=== PATIENT | male | born 1950 | race Asian ===

== ENCOUNTER 2016-08-16 18:45 | Observation (INO) | payer OTHER ==
[2016-08-16 19:02] LABS: Hematocrit 38 % (42-52); Hemoglobin 12.6 g/dl (14.0-18.0); Mean Corpuscular HGB Conc 33 g/dl (31-36); Mean Corpuscular Hemoglobin 25 pg (27-31); Mean Corpuscular Volume 76 fL (80-94); Mean Platelet Volume 8 um3 (7.4-10.4); Red Blood Count 5.04 10^6/ul (4.0-5.4); Red Cell Distribution Width 15 % (10.5-15); White Blood Count 10.4 10^3/ul (3.5-10.8)
--- NOTE | 2016-08-16 19:12 | RAD ---
INDICATION: Difficulty walking and talking COMPARISON: None. TECHNIQUE: Contiguous axial sections of the brain were obtained from the skull base to the vertex without contrast. FINDINGS: The ventricles, cisterns and sulci are within normal limits. The talamantes-white matter differentiation is adequately maintained and there is no sulcal effacement. No significant focal abnormality or mass effect is present. There is no evidence for intracranial hemorrhage. No significant focal osseous abnormality is present. The visualized portion of the paranasal sinuses and mastoid air cells appear clear. IMPRESSION: Normal CT of the brain. Findings reported to Dr. Barrera over the telephone at 1908 hours on August 16, 2016.
[2016-08-16 19:17] LABS: Albumin 4.1 g/dL (3.2-5.2); BUN/Creatinine Ratio 14.4 (8-20); Calcium 8.8 mg/dL (8.6-10.3); EGFR African American 85.8 (>60); EGFR Non-African American 66.7 (>60); Globulin 3.1 g/dL (2-4); HDL Cholesterol 51.5 mg/dL; Total Bilirubin 0.4 mg/dL (0.2-1.0); Total Protein 7.2 g/dL (6.4-8.9)
--- NOTE | 2016-08-16 19:47 | RAD ---
INDICATION: Dizziness and altered mental status COMPARISON: Most recent comparison chest x-rays dated August 29, 2013 TECHNIQUE: Single AP portable view of the chest was obtained. FINDINGS: Image quality is compromised due to the relative inferiority of a portable chest x-ray. Stable postoperative findings include sternotomy wires and surgical clips overlying the left upper mediastinum. The heart and mediastinum exhibit normal size and contour. The lungs are grossly clear. There is no evidence of a large pleural effusion. Visualized bones are normal for the patient's age. IMPRESSION: No radiographic evidence for acute cardiopulmonary abnormality on this portable chest x-ray.
--- NOTE | 2016-08-16 20:37 | HP ---
H&P (Free Text) History and Physical: PCP: Anderson Ott Date/Time of Evaluation: 08/16/20162039 CC: acute memory loss HPI: Mr Hernandez is a 65YO male who speaks Luxembourger at a moderate level HX CAD/4vCABG who was at home with his this evening. He lay down around 1700 taking a nap until ~1800 when he awoke. His heard him in the restroom and called to see if he was OK. He came out and reported to her that he felt he was having trouble with his memory. She noted that he was repeating questions every few minutes and was unable to retain information. He also reports that he known what he wants to say, but has difficulty saying it. This difficulty is mainly in being slow to produce speech as well as being slow to recognize when someone is speaking. He denies focal W/N/T, change in vision/swallow, chest pain, SOB, F /C, cough, congestion, headache, or other issues. Dr Beatriz MD neurology was consulted via phone by Marium Barrera MD ED. Work up is essentially negative excepting a mild hypoKalemia and stable chronic microcytic anemia. CT brain WO, CXR, & ECG are benign. Vitals are stable. Primary differential diagnoses include TGA, TIA, & to a lesser degree arrhythmia or seizure. 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 Mother is alive & reasonably healthy in her 90s. ROS: as above, otherwise reviewed and all were negative Constitutional: NAD, normally developed, well-nourished male vitals: Vital Signs Temp 36.1 C 08/16/16 18:47 Pulse 82 08/16/16 18:47 Resp 16 08/16/16 18:47 BP 151/108 08/16/16 18:47 Pulse Ox 100 08/16/16 18:47 Intake & Output 08/15/16 08/16/16 08/16/16 23:59 11:59 23:59 Weight 74.843 kg HEENM: atraumatic; sclera/conjunctiva: non-icteric/clear; hearing: clinically intact; oropharynx: clear, mucosa moist Neck: soft tissue: non-tender; thyroid: normal Pulmonary: clear to auscultation bilaterally, good aeration, no accessory muscle use CV: RR/RR, normal S1S2, no carotid bruit, no jugular venous distention, 2+ B DP/ PT, no edema Abdominal: soft, non-distended, non-tender, no rebound/guarding/rigidity, normoactive bowel sounds, no hepatosplenomegaly or masses, no costovertebral angle tenderness Musculoskeletal: general: grossly intact; gait: stable Integumental: normal appearance and texture Neurological cranial nerves III/IV/: symmetric light reflex, EOMI/PERRLA V: intact facial sensation, normal mastication VII: intact facial symmetry, intact eye clench VIII: hearing clinically intact IX/X: symmetric palatal motion, no dysarthria XII: midline tongue protrusion, normal voice articulation motor: handed LUE: 4+/5 proximally, distally, & earth burner strength RUE: 3-/5 proximally 2nd pain, 4-/5 distally 2nd pain, & 4+/5 earth burner strength LLE: 4+/5 proximally & distally RLE: 4+/5 proximally & distally coordination finger/nose: unable to perform L 2nd pain sensory crude touch: intact globally pinprick: intact globally DTRs biceps: 2+ R, not tested L 2nd IV site w/ pain triceps: 2+ R, 1+ L suboptimal assessment 2nd pain brachioradialis: 1+ B patellar: 2+ B Achilles: 1+ B Babinski: downgoing B Psychiatric orientation: AA&O to PPS affect: calm mood: cooperative eye contact: good content: reliable memory: no repetition of questions during my exam responses: timely insight: fair to good Testing: Lab Results 08/16/16 08/16/16 08/16/16 Range/Units 18:51 18:53 18:53 WBC 10.4 (3.5-10.8) 10^3/ul RBC 5.04 (4.0-5.4) 10^6/ul Hgb 12.6 L (14.0-18.0) g/dl Hct 38 L (42-52) % MCV 76 L (80-94) fL MCH 25 L (27-31) pg MCHC 33 (31-36) g/dl RDW 15 (10.5-15) % Plt Count 185 (150-450) 10^3/ul MPV 8 (7.4-10.4) um3 Neut % (Auto) 53.6 (38-83) % Lymph % (Auto) 35.9 (25-47) % [place] % (Auto) 8.5 (1-9) % Eos % (Auto) 1.2 (0-6) % Baso % (Auto) 0.8 (0-2) % Absolute Neuts (auto) 5.6 (1.5-7.7) 10^3/ul Absolute Lymphs (auto) 3.7 (1.0-4.8) 10^3/ul Absolute Monos (auto) 0.9 H (0-0.8) 10^3/ul Absolute Eos (auto) 0.1 (0-0.6) 10^3/ul Absolute Basos (auto) 0.1 (0-0.2) 10^3/ul Absolute Nucleated RBC 0.01 10^3/ul Nucleated RBC % 0.1 INR (Anticoag Therapy) 0.88 L (0.89-1.11) APTT 29.7 (26.0-36.3) seconds Sodium (133-145) mmol/L Potassium (3.5-5.0) mmol/L Chloride (101-111) mmol/L Carbon Dioxide (22-32) mmol/L Anion Gap (2-11) mmol/L BUN (6-24) mg/dL Creatinine (0.67-1.17) mg/dL Est GFR ( Amer) (>60) Est GFR (Non-Af Amer) (>60) BUN/Creatinine Ratio (8-20) Glucose (70-100) mg/dL POC Glucose (mg/dL) 120 H (74-106) mg/dL Lactic Acid (0.5-2.0) mmol/L Calcium (8.6-10.3) mg/dL Total Bilirubin (0.2-1.0) mg/dL AST (13-39) U/L ALT (7-52) U/L Alkaline Phosphatase (34-104) U/L Troponin I (<0.04) ng/mL Total Protein (6.4-8.9) g/dL Albumin (3.2-5.2) g/dL Globulin (2-4) g/dL Albumin/Globulin Ratio (1-3) Triglycerides mg/dL Cholesterol mg/dL LDL Cholesterol mg/dL HDL Cholesterol mg/dL Blood Type Antibody Screen 08/16/16 08/16/16 08/16/16 Range/Units 18:53 18:53 18:53 WBC (3.5-10.8) 10^3/ul RBC (4.0-5.4) 10^6/ul Hgb (14.0-18.0) g/dl Hct (42-52) % MCV (80-94) fL MCH (27-31) pg MCHC (31-36) g/dl RDW (10.5-15) % Plt Count (150-450) 10^3/ul MPV (7.4-10.4) um3 Neut % (Auto) (38-83) % Lymph % (Auto) (25-47) % [place] % (Auto) (1-9) % Eos % (Auto) (0-6) % Baso % (Auto) (0-2) % Absolute Neuts (auto) (1.5-7.7) 10^3/ul Absolute Lymphs (auto) (1.0-4.8) 10^3/ul Absolute Monos (auto) (0-0.8) 10^3/ul Absolute Eos (auto) (0-0.6) 10^3/ul Absolute Basos (auto) (0-0.2) 10^3/ul Absolute Nucleated RBC 10^3/ul Nucleated RBC % INR (Anticoag Therapy) (0.89-1.11) APTT (26.0-36.3) seconds Sodium 136 (133-145) mmol/L Potassium 3.0 L (3.5-5.0) mmol/L Chloride 102 (101-111) mmol/L Carbon Dioxide 26 (22-32) mmol/L Anion Gap 8 (2-11) mmol/L BUN 16 (6-24) mg/dL Creatinine 1.11 (0.67-1.17) mg/dL Est GFR ( Amer) 85.8 (>60) Est GFR (Non-Af Amer) 66.7 (>60) BUN/Creatinine Ratio 14.4 (8-20) Glucose 119 H (70-100) mg/dL POC Glucose (mg/dL) (74-106) mg/dL Lactic Acid 2.3 H* (0.5-2.0) mmol/L Calcium 8.8 (8.6-10.3) mg/dL Total Bilirubin 0.40 (0.2-1.0) mg/dL AST 19 (13-39) U/L ALT 15 (7-52) U/L Alkaline Phosphatase 40 (34-104) U/L Troponin I 0.00 (<0.04) ng/mL Total Protein 7.2 (6.4-8.9) g/dL Albumin 4.1 (3.2-5.2) g/dL Globulin 3.1 (2-4) g/dL Albumin/Globulin Ratio 1.3 (1-3) Triglycerides 82 mg/dL Cholesterol 134 mg/dL LDL Cholesterol 66 mg/dL HDL Cholesterol 51.5 mg/dL Blood Type A Positive Antibody Screen Negative ECG, personally reviewed: NSR rate 85, no ischemia CXR, personally reviewed: IMPRESSION: No radiographic evidence for acute cardiopulmonary abnormality on this portable chest x-ray. CT brain WO, personally reviewed: IMPRESSION: Normal CT of the brain. Impression: 65M presenting with symptoms concerning primarily for TIA vs TGA, exam & HX somewhat limited 2nd language & cultural barriers DIAGNOSIS & PLAN Primary AMS, transient alteration of awareness : continue aspirin : check CTA head/neck : MRI [place] in AM : telemetry : recheck troponin in AM : no indication for PT/OT/ST : Ger Henderson MD neurology consulted via ED : supplemental oxygen : supportive care hypoKalemia : replace & recheck Secondary CAD/4vCABG : continue aspirin HTN : continue lisinopril HLD : continue atorvastatin chronic R shoulder pain : continue oxycodone PRN Admission Rational: CDU observation for TIA work up DVTp: heparin SQ Code Status: full HCP:
[2016-08-16] MEDS ORDERED: Iohexol 350* (CONTRAST) 500 ML MDV IV ONE (21:50)
[2016-08-16] MEDS ORDERED: Ondansetron INJ* 2 MG/ML VIAL IV PRN (22:34)
[2016-08-16] MEDS ORDERED: Melatonin (NF) 3 MG TAB PO PRN (22:34)
[2016-08-16] MEDS ORDERED: Acetaminophen TAB* 325 MG PO PRN (22:34)
[2016-08-16] MEDS ORDERED: oxyCODONE TAB* 5 MG TAB PO PRN (22:41)
--- NOTE | 2016-08-16 22:48 | RAD ---
CPT II: CPT II Codes: 3100F INDICATION: Altered mental status atlantoaxial COMPARISON: Same day CT of the brain without contrast TECHNIQUE: A CT angiogram of the head and neck was performed with 80 cc of Omnipaque 350. Contiguous axial sections were obtained from the thoracic inlet through the [place]. Images were reconstructed in the sagittal, coronal planes and in a 3-D volume rendered format. The distal cervical internal carotid artery diameter is used as the denominater for stenosis measurement. CTA NECK: The common and internal carotid arteries are patent without hemodynamically significant stenosis. Right: Coarse calcification causes narrowing at the right carotid bulb down to 5 mm in width. Just superiorly the right internal carotid artery measures 8 mm in width yielding approximately 63% degree stenosis. Left: There is eccentric calcified atherosclerosis at the left carotid bulb where the lumen measures 7 mm in diameter. Just superiorly the left internal carotid artery also measures 7 mm in diameter yielding no significant stenosis. The vertebral arteries are patent without gross abnormality. CTA of the brain: The internal carotid, anterior and middle cerebral arteries appear are patent without high grade stenosis or occlusion. The vertebral, basilar and posterior cerebral arteries appear patent without high grade stenosis or occlusion. The right communicating artery is diminutive relative to the left but the [place] is maintained. No focal luminal filling defect, aneurysm or vascular malformation is seen. IMPRESSION: There is coarse calcification at the bilateral carotid bulbs does not cause any significant stenosis on the left at approximately 63% degree stenosis on the right. This can BE further confirmed with carotid artery ultrasound if clinically warranted.
[2016-08-16] MEDS: Potassium Chlor TAB* 20 MEQ TAB.ER PO SCH (23:27)
[2016-08-16] MEDS: NS 0.9% 1000 ML* 1,000 ML IV SCH (23:32)
[2016-08-17] MEDS: Potassium Chlor TAB* 20 MEQ TAB.ER PO SCH (03:24)
[2016-08-17] MEDS: Heparin VIAL(*) 5000 UNITS/ML VIAL (FIVE THOUSAND) SUBCUT SCH ×3 (05:28→23:00)
[2016-08-17] MEDS: Omeprazole CAP* 20 MG PO SCH ×2 (05:28→05:31)
[2016-08-17 06:25] LABS: BUN/Creatinine Ratio 16.1 (8-20); Calcium 9.2 mg/dL (8.6-10.3); EGFR African American 105.2 (>60); EGFR Non-African American 81.8 (>60); Potassium 4.3 mmol/L (3.5-5.0); Troponin I 0.01 ng/mL (<0.04)
--- NOTE | 2016-08-17 09:14 | CONSULT ---
Consult Consult: 08/17/16 neurology consult 65 yo RHM w/ CAD/CABG, presenting last night with symptoms noted after waking up from a nap. He slept on the couch; his was in another room; there was no trauma or incontinence and they deny a history of seizures. When he awoke he felt dizzy and as if he (not the room) was spinning; he suggests 'his memory left' but it does not sound as if there was any clear amnesia, but rather some confusion. He stood and used the bathroom on his own, at which time he felt unsteady, but with no shorty fall or being pulled in any specific direction. he denies visual or bulbar issues, sensorimotor symptoms. His notes that he would take a few seconds to respond to her questions, and several times repeated himself (eg when she drove him to the hospital he said 'be careful driving' to her a few times), but that his speech was clear. 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 This am he had some nausea and emesis after using the restroom. He denies recent illness or sick contacts. He takes a baby ASA at baseline. Allergies/Meds - per jul PMH - as above, plus: HTN, HL, R rotator cuff surg FH - F of stroke; M alive in her 90s per chart SH - no etoh or tobacco, retired jeweler/aldo; accompanied by ; has been in [place] yrs; originally from [facility] ROS 10 point review as per hpi, otherwise negative general Examination: no apparent distress when lying flat; after standing and briefly ambulating became nauseated and had modest amount of non bloody emesis; no edema, male of stated age; redundant eyelid folds without clear ptosis; vs per emr Neurologic Examination Mental Status: alert and oriented; affect reactive, no clear neglect, fluent speech, hebrew as second language but speaks reasonably well Cranial Nerves: Funduscopy deferred, otherwise II-XII intact; pruitt full to confrontation; no nystagmus Motor: normal bulk, tone and power; no drift or tremor Sensory: vibration and touch are intact Reflexes: 2 throughout symmetrically. Plantar responses are flexor Coordination: finger to nose is accurate; no overt truncal ataxia seated Gait: normal casual gait; cautious but narrow base; Romberg had mild sway but did not break (afterwards became sick as above) Serologies: - Cbc, coags, chem, lft ,trop, lipids are all normal or negative; K 3 then normalized - Priors: crp, psa, tsh were all ok; cpk 400s in 2013, then resolved follow up; bnp 280 Imaging: - Head CT reviewed and negative - CTA head and neck (done at [facility] ED) reviewed and without high grade stenosis to my review (rads report suggests 60% R carotid narrowing at bifurcation due to calcification) - Cxr neg; stress test 08/05 neg Impression: 65 yo RHM, CAD/CABG, several vascular risk factors, p/w imbalance/possible vertigo, ? confusion, some GI symptoms. His exam is not clearly localizing; CT and CTA negative save some sub surgical stenosis R ICA (clinically incidental; CTA can over state degree of stenosis in context of calcification). Having heard the story first hand, it does not sound typical of transient global amnesia (TGA). The differential includes a post fossa (cerebellar, thalamic or less likely brainstem) stroke, and he has an MRI scheduled; but also a primary non neuro illness. I will follow up on his imaging; if there is evidence of acute infarct he will need tele, TTE.
[2016-08-17] MEDS: Lisinopril TAB* 5 MG PO SCH (10:07)
[2016-08-17] MEDS: Docusate CAP* 100 MG PO SCH ×2 (10:08→20:25)
[2016-08-17] MEDS: Aspirin EC Low Dose* 81 MG TAB.EC PO SCH (10:08)
--- NOTE | 2016-08-17 11:41 | RAD ---
HISTORY: Vertigo COMPARISONS: CT of the brain August 16, 2016 TECHNIQUE: The following sequences were obtained of the head: Sagittal T1-weighted images, axial T2-weighted images, axial FLAIR images, axial susceptibility weighted images, axial T1-weighted images. Additionally, axial diffusion-weighted images were obtained with calculated apparent diffusion coefficients.. FINDINGS: HEMORRHAGE/INFARCT: There is no hemorrhage or acute infarct. MASSES/SHIFT: There is no mass or shift. EXTRA-AXIAL SPACES/MENINGES: There are no extra-axial fluid collections. SULCI AND VENTRICLES: The sulci and ventricles are normal in size and position for the patient's stated age. CEREBRUM: There are no focal parenchymal abnormalities. BRAINSTEM: There are no focal parenchymal abnormalities. CEREBELLUM: There are no focal parenchymal abnormalities. The cerebellar tonsils are normal in size and position. SELLA: The sella is normal. PINEAL: The pineal region is clear. CP ANGLE/TEMPORAL BONES: The labyrinthine structures are grossly normal. VESSELS: Normal flow-voids are noted within the visualized vertebral vasculature. DIFFUSION ABNORMALITIES: There are no diffusion abnormalities. PARANASAL SINUSES/MASTOIDS: There is mild mucosal thickening of the bilateral maxillary sinuses. ORBITS: The orbits are unremarkable. BONES AND SOFT TISSUE: No bone or soft tissue abnormalities are noted. IMPRESSION: NO ACUTE INTRACRANIAL ABNORMALITY INCLUDING NO EVIDENCE OF ACUTE FOCAL OR TERRITORIAL INFARCTION.
[2016-08-17 12:41] LABS: Urine Bilirubin Negative (Negative); Urine Glucose Negative (Negative); Urine Nitrite Negative (Negative)
[2016-08-17] MEDS ORDERED: Atorvastatin* 20 MG TAB PO SCH (18:00)
--- NOTE | 2016-08-17 19:13 | PN ---
Subjective Date of Service: 08/17/16 Interval History: Pt has limited ability to speak Kyrgyz, but not interested in asking a manager life to come in . Family in room. Pt feels better, but still c/o " heavy head". Vomited once today. Feels unsteady on feet, but ambulated to bathroom with no problems Objective Active Medications: Acetaminophen (Tylenol Tab*) 650 mg PO Q6H PRN PRN Reason: FEVER/PAIN Aspirin (Aspirin Ec Low Dose*) 81 mg PO DAILY [facility] Last Admin: 08/17/16 10:08 Dose: 81 mg Atorvastatin Calcium (Lipitor*) 20 mg PO QPM [facility] Last Admin: 08/17/16 18:10 Dose: 20 mg Docusate Sodium (Colace Cap*) 200 mg PO BID [facility] Last Admin: 08/17/16 10:08 Dose: 200 mg Heparin Sodium (Porcine) (Heparin Vial(*)) 5,000 units SUBCUT Q8HR [facility] Last Admin: 08/17/16 13:43 Dose: 5,000 units Sodium Chloride (Ns 0.9% 1000 Ml*) 1,000 mls @ 50 mls/hr IV PER RATE [facility] Last Admin: 08/16/16 23:32 Dose: 50 mls/hr Lisinopril (Prinivil Tab*) 5 mg PO DAILY [facility] Last Admin: 08/17/16 10:07 Dose: 5 mg Melatonin (Melatonin (Nf)) 3 mg PO BEDTIME PRN; Protocol PRN Reason: Sleep Omeprazole (Prilosec Cap*) 20 mg PO DAILY@0600 [facility] Last Admin: 08/17/16 05:31 Dose: Not Given Ondansetron HCl (Zofran Inj*) 4 mg IV Q6H PRN PRN Reason: NAUSEA Oxycodone HCl (Roxycodone Tab*) 5 mg PO Q4HR PRN PRN Reason: PAIN Vital Signs 08/16/16 08/16/16 08/16/16 20:45 21:00 21:15 Temperature Pulse Rate 82 77 79 Respiratory 15 19 20 Rate Blood Pressure 128/86 (mmHg) O2 Sat by Pulse 98 97 97 Oximetry 08/16/16 08/16/16 08/16/16 21:30 21:45 22:00 Temperature Pulse Rate 76 73 75 Respiratory 17 17 21 Rate Blood Pressure 135/82 (mmHg) O2 Sat by Pulse 96 96 96 Oximetry 08/16/16 08/17/16 08/17/16 22:30 00:00 03:42 Temperature 98.1 F 98.3 F Pulse Rate 71 73 Respiratory 16 20 Rate Blood Pressure 148/85 114/80 (mmHg) O2 Sat by Pulse 100 96 100 Oximetry 08/17/16 08/17/16 08/17/16 09:47 12:09 12:24 Temperature 98.0 F Pulse Rate 72 Respiratory 14 Rate Blood Pressure 106/73 (mmHg) O2 Sat by Pulse 95 97 97 Oximetry 08/17/16 08/17/16 08/17/16 15:07 15:23 16:07 Temperature 98.3 F Pulse Rate 64 Respiratory Rate Blood Pressure 110/78 (mmHg) O2 Sat by Pulse 96 97 96 Oximetry Oxygen Devices in Use Now: None Appearance: 65 yo M in NAD, AAOx3, poor historian Eyes: No Scleral Icterus, PERRLA Ears/Nose/Mouth/Throat: NL Teeth, Lips, Gums, Mucous Membranes Moist Neck: NL Appearance and Movements; NL JVP, Trachea Midline Respiratory: Symmetrical Chest Expansion and Respiratory Effort, Clear to Auscultation Cardiovascular: NL Sounds; No Murmurs; No JVD, RRR Abdominal: NL Sounds; No Tenderness; No Distention Lymphatic: No Cervical Adenopathy Extremities: No Edema, No Clubbing, Cyanosis Skin: No Rash or Ulcers, No Nodules or Sclerosis Neurological: Alert and Oriented x 3, NL Muscle Strength and Tone Result Diagrams: 08/16/16 18:53 08/17/16 05:35 Assess/Plan/Problems-Billing Assessment: 65 yo M with h/o HTN, dyslipidemia, CABG presents c/o dizziness and confusion (repeating the same questions prior to admission) - Patient Problems (1) Confusion Comment: appreciate neurology consult. MRI negative. Pt is a very poor historian. Suspect toxic metabolic encephalopathy due to a viral infection(vomited-? GI virus) cont obv, gentle IVF (2) HTN (hypertension) Comment: cotn lisinopril, controled (3) Dyslipidemia Comment: LDL 66. cont lipitor (4) DVT prophylaxis Comment: heparin sc Status and Disposition: cont OBV, likely d/c home tomorrow
[2016-08-17] MEDS ORDERED: NS 0.9% 500 ML BAG* 500 ML IV ONE (21:00)
[2016-08-18] MEDS ORDERED: NS 0.9% 1000 ML* 1,000 ML IV ONE (00:30)
[2016-08-18] MEDS: NS 0.9% 1000 ML* 1,000 ML IV SCH (02:57)
[2016-08-18] MEDS: Omeprazole CAP* 20 MG PO SCH (05:22)
[2016-08-18] MEDS: Heparin VIAL(*) 5000 UNITS/ML VIAL (FIVE THOUSAND) SUBCUT SCH (05:23)
[2016-08-18 06:00] LABS: Hematocrit 35 % (42-52); Hemoglobin 11.4 g/dl (14.0-18.0); Mean Corpuscular HGB Conc 32 g/dl (31-36); Mean Corpuscular Hemoglobin 25 pg (27-31); Mean Corpuscular Volume 77 fL (80-94); Mean Platelet Volume 8 um3 (7.4-10.4); Red Cell Distribution Width 15 % (10.5-15); White Blood Count 5.6 10^3/ul (3.5-10.8)
[2016-08-18 06:15] LABS: BUN/Creatinine Ratio 15.8 (8-20); Calcium 8.5 mg/dL (8.6-10.3); EGFR African American 95.6 (>60); EGFR Non-African American 74.4 (>60); Potassium 4.2 mmol/L (3.5-5.0)
[2016-08-18 07:57] VITALS: BP 116/70
--- NOTE | 2016-08-18 08:03 | ED ---
Tyrell Wright Erika, scribed for Kosta Barrera MD on 08/16/16 at 1909 . Altered Mental Status - HPI Summary HPI Summary: Patient is a 65-year-old male presenting to the ED with a CC of AMS. Per , patient was last known well at 17:00 today. She reports that they ate dinner this afternoon, and then patient became fatigued at 17:00 and took a nap. He got up around 17:45. Patient was then confused and forgetful, per - she reports that he was unable to speak because he would forget what he was trying to say. She also reports that patient would repeat the same questions, and could not remember that his had already answered him. Patient was also dizzy. Patient denies pain or focal weakness. - History Of Current Complaint Chief Complaint: EDAltMentalStatus Stated Complaint: DIZZINESS/AMS Time Seen by Provider: 08/16/16 18:45 Hx Obtained From: Patient, Family/Azure Developer - Onset/Duration: Still Present Timing: Constant Severity Currently: Moderate Character: Confusion Aggravating Factor(s): Unknown Alleviating Factor(s): Nothing Associated Signs And Symptoms: Positive: Dizziness - Allergies/Home Medications Allergies/Adverse Reactions: Allergies Allergy/AdvReac Type Severity Reaction Status Date / Time Ibuprofen Allergy Intermediate Unknown Verified 07/27/13 21:44 Reaction Details Home Medications: Home Medications Lisinopril 5 mg PO DAILY 08/16/16 [History Confirmed 08/16/16] PMH/Surg Hx/FS Hx/Imm Hx Endocrine/Hematology History: Denies: Hx Diabetes Cardiovascular History: Reports: Hx Angina, Hx Coronary Artery Disease, Hx Hypercholesterolemia, Hx Myocardial Infarction - with stents Denies: Hx Hypertension Respiratory History: Denies: Hx Asthma, Hx Chronic Obstructive Pulmonary Disease (COPD) Infectious Disease History: Unable to Obtain/Confirm Infectious Disease History: Denies: Traveled Outside the [place] in Last 30 Days - Family History Known Family History: Positive: Other - stroke in father at young age - Social History Lives: With Family Alcohol Use: Rare Hx Substance Use: No Substance Use Type: Reports: None Hx Tobacco Use: No Smoking Status (MU): Never Smoked Tobacco Review of Systems Positive: Fatigue Negative: Arthralgia, Myalgia Neurological: Other - confusion, difficulty saying what he wants to, dizziness, memory loss Negative: Weakness All Other Systems Reviewed And Are Negative: Yes Physical Exam Triage Information Reviewed: Yes Vital Signs On Initial Exam: Initial Vitals Temp Pulse Resp BP Pulse Ox 97 F 82 16 151/108 100 08/16/16 18:47 08/16/16 18:47 08/16/16 18:47 08/16/16 18:47 08/16/16 18:47 Vital Signs Reviewed: Yes Appearance: Positive: Well-Appearing, No Pain Distress Skin: Positive: Warm, Skin Color Reflects Adequate Perfusion, Dry Head/Face: Positive: Normal Head/Face Inspection Eyes: Positive: Other: - transient fatiguing nystagmus with the fast component to the right ENT: Positive: Normal ENT inspection Neck: Positive: Supple, Nontender Respiratory/Lung Sounds: Positive: Clear to Auscultation, Breath Sounds Present Cardiovascular: Positive: RRR Abdomen Description: Positive: Nontender, Soft Bowel Sounds: Positive: Present Musculoskeletal: Positive: Normal Neurological: Positive: Other - see NIH stroke scale Psychiatric: Positive: Affect/Mood Appropriate Diagnostics - Vital Signs Vital Signs Temp Pulse Resp BP Pulse Ox 08/16/16 18:47 97 F 82 16 151/108 100 - Laboratory Lab Results: Lab Results 08/16/16 08/16/16 08/16/16 Range/Units 18:51 18:53 18:53 WBC 10.4 (3.5-10.8) 10^3/ul RBC 5.04 (4.0-5.4) 10^6/ul Hgb 12.6 L (14.0-18.0) g/dl Hct 38 L (42-52) % MCV 76 L (80-94) fL MCH 25 L (27-31) pg MCHC 33 (31-36) g/dl RDW 15 (10.5-15) % Plt Count 185 (150-450) 10^3/ul MPV 8 (7.4-10.4) um3 Neut % (Auto) 53.6 (38-83) % Lymph % (Auto) 35.9 (25-47) % Butler % (Auto) 8.5 (1-9) % Eos % (Auto) 1.2 (0-6) % Baso % (Auto) 0.8 (0-2) % Absolute Neuts (auto) 5.6 (1.5-7.7) 10^3/ul Absolute Lymphs (auto) 3.7 (1.0-4.8) 10^3/ul Absolute Monos (auto) 0.9 H (0-0.8) 10^3/ul Absolute Eos (auto) 0.1 (0-0.6) 10^3/ul Absolute Basos (auto) 0.1 (0-0.2) 10^3/ul Absolute Nucleated RBC 0.01 10^3/ul Nucleated RBC % 0.1 INR (Anticoag Therapy) 0.88 L (0.89-1.11) APTT 29.7 (26.0-36.3) seconds Sodium (133-145) mmol/L Potassium (3.5-5.0) mmol/L Chloride (101-111) mmol/L Carbon Dioxide (22-32) mmol/L Anion Gap (2-11) mmol/L BUN (6-24) mg/dL Creatinine (0.67-1.17) mg/dL Est GFR ( Amer) (>60) Est GFR (Non-Af Amer) (>60) BUN/Creatinine Ratio (8-20) Glucose (70-100) mg/dL POC Glucose (mg/dL) 120 H (74-106) mg/dL Lactic Acid (0.5-2.0) mmol/L Calcium (8.6-10.3) mg/dL Total Bilirubin (0.2-1.0) mg/dL AST (13-39) U/L ALT (7-52) U/L Alkaline Phosphatase (34-104) U/L Troponin I (<0.04) ng/mL Total Protein (6.4-8.9) g/dL Albumin (3.2-5.2) g/dL Globulin (2-4) g/dL Albumin/Globulin Ratio (1-3) Triglycerides mg/dL Cholesterol mg/dL LDL Cholesterol mg/dL HDL Cholesterol mg/dL Blood Type Antibody Screen 08/16/16 08/16/16 08/16/16 Range/Units 18:53 18:53 18:53 WBC (3.5-10.8) 10^3/ul RBC (4.0-5.4) 10^6/ul Hgb (14.0-18.0) g/dl Hct (42-52) % MCV (80-94) fL MCH (27-31) pg MCHC (31-36) g/dl RDW (10.5-15) % Plt Count (150-450) 10^3/ul MPV (7.4-10.4) um3 Neut % (Auto) (38-83) % Lymph % (Auto) (25-47) % Butler % (Auto) (1-9) % Eos % (Auto) (0-6) % Baso % (Auto) (0-2) % Absolute Neuts (auto) (1.5-7.7) 10^3/ul Absolute Lymphs (auto) (1.0-4.8) 10^3/ul Absolute Monos (auto) (0-0.8) 10^3/ul Absolute Eos (auto) (0-0.6) 10^3/ul Absolute Basos (auto) (0-0.2) 10^3/ul Absolute Nucleated RBC 10^3/ul Nucleated RBC % INR (Anticoag Therapy) (0.89-1.11) APTT (26.0-36.3) seconds Sodium 136 (133-145) mmol/L Potassium 3.0 L (3.5-5.0) mmol/L Chloride 102 (101-111) mmol/L Carbon Dioxide 26 (22-32) mmol/L Anion Gap 8 (2-11) mmol/L BUN 16 (6-24) mg/dL Creatinine 1.11 (0.67-1.17) mg/dL Est GFR ( Amer) 85.8 (>60) Est GFR (Non-Af Amer) 66.7 (>60) BUN/Creatinine Ratio 14.4 (8-20) Glucose 119 H (70-100) mg/dL POC Glucose (mg/dL) (74-106) mg/dL Lactic Acid 2.3 H* (0.5-2.0) mmol/L Calcium 8.8 (8.6-10.3) mg/dL Total Bilirubin 0.40 (0.2-1.0) mg/dL AST 19 (13-39) U/L ALT 15 (7-52) U/L Alkaline Phosphatase 40 (34-104) U/L Troponin I 0.00 (<0.04) ng/mL Total Protein 7.2 (6.4-8.9) g/dL Albumin 4.1 (3.2-5.2) g/dL Globulin 3.1 (2-4) g/dL Albumin/Globulin Ratio 1.3 (1-3) Triglycerides 82 mg/dL Cholesterol 134 mg/dL LDL Cholesterol 66 mg/dL HDL Cholesterol 51.5 mg/dL Blood Type A Positive Antibody Screen Negative Result Diagrams: 08/18/16 04:38 08/18/16 04:38 Lab Statement: Any lab studies that have been ordered have been reviewed, and results considered in the medical decision making process. - Radiology CXR Radiology Interpretation Completed By: Radiologist - IMPRESSION: No radiographic evidence for acute cardiopulmonary abnormality on this portable chest x-ray. - CT CT Brain CT Interpretation Completed By: Radiologist - IMPRESSION: Normal CT of the brain. Findings reported to Dr. Barrera over the telephone at 1908 hours on August 16, 2016. - EKG 18: Cardiac Rate: NL - at 85 bpm EKG Rhythm: Sinus Rhythm EKG Interpretation: Baseline wander National Institutes Of Health - NIH Scale Level of Consciousness: Alert/Keenly Responsive Ask Patient the Month and His/Her Age: Both Correct Ask Pt to Open/Close Eyes and Director Private Music Therapy Agency/Release Non-Paretic Hand: Both Correctly Best Gaze (Only Horizontal Eye Movement): Normal Visual Field Testing: No Visual Loss Facial Paresis-Pt to Smile & Close Eyes or Grimace Symmetry: Normal/Symmetrical Motor Function - Right Arm: No Drift-Holds 10 Seconds Motor Function - Left Arm: No Drift-Holds 10 Seconds Motor Function - Right Leg: No Drift-Holds 10 Seconds Motor Function - Left Leg: No Drift-Holds 10 Seconds Limb Ataxia-Must be out of Proportion to Weakness Present: Absent Sensory (Use Pinprick to Test Arms/Legs/Trunk/Face): Normal Best Language (Describe Picture, Name Items): Some Loss Dysarthria (Read Several Words): Normal Extinction and Inattention: No Abnormality Total Score: 1 Re-Evaluation - Re-Evaluation First Eval Re-Evaluation Time: 20:14 Comment: Discussed imaging and lab results and Dr. Henderson's recommendation Altered Mental Statu Course/Dx - Course Course Of Treatment: It is difficult to get a good history, partly because of language and partly because of underlying anxiety and confusion. My initial concern was that he had an expressive aphasia and I called a [facility]. After further evaluation, my impression is that this could represent TGA but I am not confident and am concerned that I may be missing something. I consulted neurology and the hospitalists. - Diagnoses Discharge Diagnoses: Confusion During the Visit The Following Alert/Code Occurred: [facility] - 18:54 - Provider Notifications Discussed Care Of Patient With: Dr. Newman (radiologist) at 19:09 - notified Dr. Barrera of negative CT brain. Dr. Henderson (neurology) at 19:53 - discussed case and patient's history and presentation. Recommends admission. Dr. Gonzalez (hospitalist) at 20:30 - agrees to admit Discharge - Discharge Plan Condition: Stable Disposition: ADMITTED TO [facility] The documentation as recorded by the Tyrell harris Erika accurately reflects the service I personally performed and the decisions made by me, Kosta Barrera MD.
[2016-08-18] MEDS: Aspirin EC Low Dose* 81 MG TAB.EC PO SCH (09:29)
[2016-08-18] MEDS: Docusate CAP* 100 MG PO SCH (09:29)
[2016-08-18] MEDS: Lisinopril TAB* 5 MG PO SCH (09:40)
--- NOTE | 2016-08-19 03:27 | DS ---
DISCHARGE SUMMARY: DATE OF ADMISSION: 08/16/16 DATE OF DISCHARGE: 08/18/16 PRIMARY CARE PROVIDER: Dr. Ott. DISCHARGE DIAGNOSIS: A transient episode of confusion and unsteady gait and dizziness likely related to a viral illness. Although, the patient's family was convinced that it was a transient ischemic attack. SECONDARY DIAGNOSES: 1. History of coronary artery disease. 2. Status post rotator cuff tear and repair. 3. Hypertension. 4. Dyslipidemia. MEDICATIONS AT DISCHARGE: Include: 1. Lisinopril 5 mg daily. 2. Lipitor 20 mg daily. 3. Plavix 75 mg daily. 4. Multivitamin 1 tablet daily. 5. Oxycodone on a p.r.n. basis. LABORATORY DATA AND STUDIES: Performed during the hospital stay included: On 08/18/16, white blood cell count of 5.6, hemoglobin of 11.4, hematocrit of 35, MCV of 77, platelets of 171. Sodium was 139, potassium 4.2, chloride 111, carbon dioxide 25, BUN 16, creatinine 1.01. Fasting lipid profile showed triglycerides of 82, cholesterol total of 134, LDL of 66, and HDL of 51. The patient's troponins had been negative throughout his hospital stay at 0.01. Urinalysis unremarkable on 08/17/16. Transthoracic echocardiogram showed mild concentric LVH with an EF of 60% to 65% . Interatrial septum was intact without evidence of shunting and the bubble study was negative. There was mild aortic regurgitation and trace mitral regurgitation as well as marked tricuspid regurgitation. There was mild dilatation of the ascending aorta at 3.9 cm. Brain MRI documented on 08/17/16. Impression: "No acute intracranial abnormality including no evidence of acute or territorial infarction." CTA of the head and neck obtained on 08/16/16. Impression: "There is coarse calcification of the bilateral carotid bulbs, does not cause any significant stenosis on the left and approximately 63% stenosis on the right. This can be further confirmed by a carotid artery ultrasound if clinically warranted." CONSULTATION: Included Dr. Henderson's consult from Neurology. HOSPITALIZATION COURSE: Mr. Hernandez is a 65-year-old male, originally from [facility] [place] , who presented to the hospital after brief episode of confusion, unsteady gait , and subsequent development of dizziness. The patient continues to be as he describes "dizzy" for the next 24 hours. He basically was complaining of his head feeling "heavy." His ambulation was not a problem on the day prior to discharge. He did have an episode of nausea and vomited once on 08/17/16. Dr. Henderson saw the patient in consultation and thought that most likely there was primary non-neuro related cause to the patient's symptoms, but also TIA was on differential. Subsequent neuro workup including MRI of the brain was basically negative. Nevertheless, the patient's family was convinced that his original presentation of confusion and repeating himself at admission was most likely due to TIA. At this point, the patient was already on aspirin for coronary artery disease and that would include stroke prophylaxis. Switched the patient to Plavix at discharge. At this point, it is nonconclusive if the patient's symptoms were related to general viral illness or TIA. Prior to discharge, the patient's symptoms entirely resolved. The patient was coherent, not confused, and ambulated without any problems. PHYSICAL EXAMINATION AT THE TIME OF DISCHARGE: Vital Signs: Blood pressure of 116/70, heart rate of 84 and regular, respiratory rate 16, oxygen saturation 96 % on room air, temperature 98.3. General: The patient is a very pleasant 65- year-old male, who is in no acute distress. Alert, awake, and oriented x3. HEENT: Head atraumatic, normocephalic. Eyes: Pupils equal, reactive to light and accommodation. Oropharynx clear. Mucosa moist. Neck: Supple. No JVD, no bruits bilaterally. Cardiovascular: Regular rate and rhythm. No murmur. Respiratory: Clear to auscultation bilaterally. Abdomen: Soft, nontender. Bowel sounds in all 4 quadrants. Extremities: There is no edema. Pulses are 2 + bilaterally. No clubbing or cyanosis. On neuro evaluation, speech clear. Cranial nerves II through XII are grossly intact. Motor strength is 5/5 bilaterally. I did have a long discussion with the patient's and patient's daughter in regards to the patient's 63% of stenosis of the right internal carotid artery. It was noted that it is not clinically significant and we had a long discussion about possibility of how to prevent the disease from progressing. The patient' s LDL is already 66 and the patient is on appropriate dose of statin. His blood pressures had been controlled throughout his hospital stay. At this point , the recommendation is to follow up with his primary care provider, Dr. Ott, in approximately 4 to 7 days. Please note that this is a short summary of the patient's hospital stay. Please refer to further medical records for details. TIME SPENT: Approximately 40 minutes were spent on the patient's discharge. CC: Dr. Henderson, Neurology; Dr. Ott* [id number]/CPS #: [id number] MTDD
== END 2016-08-18 14:00 | disposition home or self-care (01) ==
LOC: ED 18:45 → MEDTELE 20:34
PROVIDERS: ADMIT Hospitalist; ATTEND Internal Medicine
DX: R41.0 Disorientation, unspecified (principal); R26.89 Other abnormalities of gait and mobility; R41.82 Altered mental status, unspecified; R42 Dizziness and giddiness; E87.6 Hypokalemia; D50.9 Iron deficiency anemia, unspecified; I25.119 Atherosclerotic heart disease of native coronary artery with unspecified angina pectoris; I10 Essential (primary) hypertension; E78.5 Hyperlipidemia, unspecified; Z95.1 Presence of aortocoronary bypass graft; Z79.899 Other long term (current) drug therapy; I51.7 Cardiomegaly
CPT/HCPCS: 36415; 70450; 70496; 70498; 70551; 71010; 80048; 80053; 80061; 81003; 83605; 84484; 85025; 85610; 85730; 86850; 86900; 86901; 93005; 93306; 94760; 96360; 96361; 96372; 99285; A9270-GY; G0378; J1644; Q9967

== ENCOUNTER 2021-03-07 22:46 | Inpatient (IN) ==
[2021-03-07 23:33] LABS: ABS Eosinophils 0.2 10^3/ul (0-0.6); ABS Lymphocytes 1.5 10^3/ul (1.0-4.8); ABS Monocytes 0.5 10^3/ul (0-0.8); ABS Neutrophils 2.8 10^3/ul (1.5-7.7); Eosinophil % 3.6 %; Hematocrit 37 % (42-52); Hemoglobin 12.1 g/dL (14.0-18.0); Lymphocyte % 29.4 %; Mean Corpuscular HGB Conc 33 g/dL (31-36); Mean Corpuscular Hemoglobin 26 pg (27-31); Mean Corpuscular Volume 78 fL (80-94); Mean Platelet Volume 7.6 fL (7.4-10.4); Platelet Count 185 10^3/uL (150-450); Red Blood Count 4.67 10^6 /uL (4.18-5.48); Red Cell Distribution Width 15 % (10-15)
[2021-03-07 23:39] LABS: INR 0.99 (0.86-1.15)
[2021-03-07 23:51] LABS: ALT 33 U/L (7-52); AST 35 U/L (13-39); Albumin/Globulin Ratio 1.4 (1-3); Alkaline Phosphatase 38 U/L (35-149); Anion Gap 3 mmol/L (2-11); Blood Urea Nitrogen 19 mg/dL (6-24); CO2 Carbon Dioxide 30 mmol/L (22-32); Calcium 8.8 mg/dL (8.6-10.3); Chloride 101 mmol/L (101-111); Globulin 2.8 g/dL (2-4); Glucose 107 mg/dL (70-100); Potassium 3.8 mmol/L (3.5-5.0); Sodium 134 mmol/L (135-145); Total Protein 6.8 g/dL (6.4-8.9)
[2021-03-08 00:10] LABS: Troponin I 0.07 ng/mL (<0.03)
[2021-03-08 03:28] LABS: Troponin I 0.91 ng/mL (<0.03)
[2021-03-08] MEDS ORDERED: Heparin DRIP 25,000 UNITS BAG 25,000 UNITS/500 ML BAG IV SCH (03:45)
[2021-03-08 04:05] LABS: Rapid COVID-19 Molecular Undetected (Undetected)
[2021-03-08] MEDS ORDERED: Heparin 5000 UNITS/ML 1 mL VIAL IV SCH (05:00)
[2021-03-08] MEDS: Heparin DRIP 25,000 UNITS BAG 25,000 UNITS/500 ML BAG IV SCH ×2 (05:23→11:22)
[2021-03-08] MEDS: Heparin 5000 UNITS/ML 1 mL VIAL IV SCH ×2 (05:23→17:34)
[2021-03-08 05:52] LABS: Troponin I 2.64 ng/mL (<0.03)
[2021-03-08 08:54] LABS: Troponin I 4.62 ng/mL (<0.03)
[2021-03-08] MEDS ORDERED: Nitroglycerin 0.3 mg/hr PATCH (7.5 mg) TRANSDERM SCH (09:00)
[2021-03-08] MEDS ORDERED: Nitroglycerin 0.2 mg/hr PATCH (5 mg) TRANSDERM SCH (10:37)
[2021-03-08] MEDS: Nitroglycerin 0.1 mg/hr PATCH (2.5 mg) TRANSDERM SCH (10:48)
[2021-03-08 13:49] LABS: Calcium 8.7 mg/dL (8.6-10.3); Potassium 3.6 mmol/L (3.5-5.0)
[2021-03-08 13:55] LABS: Troponin I 7.83 ng/mL (<0.03)
[2021-03-08] MEDS ORDERED: Potassium Chlor 20 meq TAB.ER PO ONE (13:56)
[2021-03-08] MEDS ORDERED: Nitro Patch/OINT Remove PATCH PATCH OFF SCH ×2 (21:00)
[2021-03-09 06:07] LABS: ABS Eosinophils 0.1 10^3/ul (0-0.6); ABS Lymphocytes 1.2 10^3/ul (1.0-4.8); ABS Monocytes 0.6 10^3/ul (0-0.8); ABS Neutrophils 6.2 10^3/ul (1.5-7.7); Eosinophil % 1.4 %; Hematocrit 37 % (42-52); Hemoglobin 12.4 g/dL (14.0-18.0); Lymphocyte % 14.9 %; Mean Corpuscular HGB Conc 34 g/dL (31-36); Mean Corpuscular Hemoglobin 26 pg (27-31); Mean Corpuscular Volume 78 fL (80-94); Mean Platelet Volume 7.3 fL (7.4-10.4); Platelet Count 178 10^3/uL (150-450); Red Blood Count 4.71 10^6 /uL (4.18-5.48); Red Cell Distribution Width 15 % (10-15); White Blood Count 8.2 10^3/uL (3.5-10.8)
[2021-03-09 06:21] LABS: Anion Gap 5 mmol/L (2-11); Blood Urea Nitrogen 12 mg/dL (6-24); CO2 Carbon Dioxide 26 mmol/L (22-32); Calcium 8.6 mg/dL (8.6-10.3); Chloride 103 mmol/L (101-111); Cholesterol 111 mg/dL; Glucose 89 mg/dL (70-100); HDL Cholesterol 57.7 mg/dL; LDL Cholesterol 43 mg/dL; Potassium 3.9 mmol/L (3.5-5.0); Sodium 134 mmol/L (135-145); Triglycerides 52 mg/dL
[2021-03-09] MEDS: Aspirin EC 81 mg TAB.EC (enteric coated) PO SCH (10:08)
[2021-03-09 10:53] LABS: Troponin I 11.26 ng/mL (<0.03)
[2021-03-09] MEDS: Nitroglycerin 0.1 mg/hr PATCH (2.5 mg) TRANSDERM SCH (13:07)
[2021-03-09] MEDS: Heparin 5000 UNITS/ML 1 mL VIAL IV SCH (14:48)
[2021-03-09] MEDS: Heparin DRIP 25,000 UNITS BAG 25,000 UNITS/500 ML BAG IV SCH (18:43)
[2021-03-10 03:39] LABS: ABS Basophils 0.1 10^3/ul (0-0.2); ABS Eosinophils 0.1 10^3/ul (0-0.6); ABS Lymphocytes 1.4 10^3/ul (1.0-4.8); ABS Monocytes 0.7 10^3/ul (0-0.8); ABS Neutrophils 5.4 10^3/ul (1.5-7.7); Eosinophil % 1.5 %; Hematocrit 37 % (42-52); Hemoglobin 12.5 g/dL (14.0-18.0); Lymphocyte % 18.7 %; Mean Corpuscular HGB Conc 34 g/dL (31-36); Mean Corpuscular Hemoglobin 26 pg (27-31); Mean Corpuscular Volume 77 fL (80-94); Mean Platelet Volume 7.6 fL (7.4-10.4); Platelet Count 188 10^3/uL (150-450); Red Blood Count 4.76 10^6 /uL (4.18-5.48); Red Cell Distribution Width 14 % (10-15); White Blood Count 7.7 10^3/uL (3.5-10.8)
[2021-03-10 03:56] LABS: ALT 30 U/L (7-52); AST 71 U/L (13-39); Albumin 3.7 g/dL (3.2-5.2); Albumin/Globulin Ratio 1.3 (1-3); Alkaline Phosphatase 45 U/L (35-149); Anion Gap 6 mmol/L (2-11); Blood Urea Nitrogen 12 mg/dL (6-24); CO2 Carbon Dioxide 25 mmol/L (22-32); Calcium 8.7 mg/dL (8.6-10.3); Chloride 102 mmol/L (101-111); Globulin 2.9 g/dL (2-4); Glucose 94 mg/dL (70-100); Potassium 3.7 mmol/L (3.5-5.0); Sodium 133 mmol/L (135-145); Total Protein 6.6 g/dL (6.4-8.9)
[2021-03-10 04:27] LABS: % Iron Saturation 19 % (15-55); Iron 46 ug/dL (50-212); Total Iron Binding Capacity 248 mcg/dL (250-450); Transferrin 177 mg/dL (203-362); Unsaturated Iron Binding < 233 ug/dL
[2021-03-10] MEDS: Aspirin EC 81 mg TAB.EC (enteric coated) PO SCH (09:06)
[2021-03-10] MEDS ORDERED: Midazolam 5 mg/5 ml VIAL 1 mg/ml 5 ml VIAL (5 mg) ONE (09:15)
[2021-03-10] MEDS ORDERED: fentaNYL 100 mcg/2 ml 50 MCG/ML VIAL ONE (09:16)
[2021-03-10] MEDS ORDERED: Lidocaine 1% VIAL 10 MG/ML VIAL ONE (09:16)
[2021-03-10] MEDS ORDERED: nitroGLYCERIN DRIP 25,000 MCG/250 ML BTL ONE (09:16)
[2021-03-10] MEDS ORDERED: Heparin 2 UNITS/ML 1000 mls 2,000 ML IV ONE (09:16)
[2021-03-10] MEDS ORDERED: Heparin 1,000 UNIT/ML 10 ml (10,000 UNITS) CATHLAB/DIALYSIS ONE (09:16)
[2021-03-10] MEDS ORDERED: Iohexol 350 (CONTRAST) 200 ML MDV IV ONE (09:16)
[2021-03-10] MEDS ORDERED: niCARdipine 0.1MG/ML IVPREMIX 20 MG/200 ML BAG IV ONE (09:20)
[2021-03-10] MEDS ORDERED: NS 0.9% 1000 ml BAG 1,000 ML IV SCH (11:00)
[2021-03-10] MEDS: Heparin 5000 UNITS/ML 1 mL VIAL IV SCH (20:30)
[2021-03-11 02:25] LABS: ABS Eosinophils 0.1 10^3/ul (0-0.6); ABS Lymphocytes 1.1 10^3/ul (1.0-4.8); ABS Monocytes 0.7 10^3/ul (0-0.8); ABS Neutrophils 5.5 10^3/ul (1.5-7.7); Eosinophil % 1.1 %; Hematocrit 38 % (42-52); Hemoglobin 12.6 g/dL (14.0-18.0); Lymphocyte % 14.9 %; Mean Corpuscular HGB Conc 34 g/dL (31-36); Mean Corpuscular Hemoglobin 26 pg (27-31); Mean Corpuscular Volume 77 fL (80-94); Mean Platelet Volume 7.6 fL (7.4-10.4); Nucleated Red Blood Cells % 0.1; Platelet Count 193 10^3/uL (150-450); Red Blood Count 4.87 10^6 /uL (4.18-5.48); Red Cell Distribution Width 14 % (10-15); White Blood Count 7.4 10^3/uL (3.5-10.8)
[2021-03-11 08:02] LABS: Calcium 8.9 mg/dL (8.6-10.3)
[2021-03-11] MEDS: Aspirin EC 81 mg TAB.EC (enteric coated) PO SCH (10:21)
[2021-03-11] MEDS ORDERED: Midazolam 5 mg/5 ml VIAL 1 mg/ml 5 ml VIAL (5 mg) ONE (11:46)
[2021-03-11] MEDS ORDERED: Heparin 2 UNITS/ML 1000 mls 3,000 ML IV ONE (11:46)
[2021-03-11] MEDS ORDERED: fentaNYL 100 mcg/2 ml 50 MCG/ML VIAL ONE (11:46)
[2021-03-11] MEDS ORDERED: Lidocaine 1% VIAL 10 MG/ML VIAL ONE (11:46)
[2021-03-11] MEDS ORDERED: Iohexol 350 (CONTRAST) 200 ML MDV IV ONE ×2 (11:46→12:04)
[2021-03-11] MEDS ORDERED: Heparin 1,000 UNIT/ML 10 ml (10,000 UNITS) CATHLAB/DIALYSIS ONE (11:48)
[2021-03-11] MEDS ORDERED: nitroGLYCERIN DRIP 25,000 MCG/250 ML BTL ONE (11:57)
[2021-03-11] MEDS ORDERED: niCARdipine 0.1MG/ML IVPREMIX 20 MG/200 ML BAG IV ONE (12:00)
[2021-03-11] MEDS ORDERED: NS 0.9% 1000 ml BAG 1,000 ML IV SCH (13:45)
[2021-03-12 04:55] LABS: ABS Eosinophils 0.1 10^3/ul (0-0.6); ABS Lymphocytes 0.8 10^3/ul (1.0-4.8); ABS Monocytes 0.6 10^3/ul (0-0.8); ABS Neutrophils 6.1 10^3/ul (1.5-7.7); Eosinophil % 1.5 %; Hematocrit 34 % (42-52); Hemoglobin 11.5 g/dL (14.0-18.0); Lymphocyte % 10.9 %; Mean Corpuscular HGB Conc 34 g/dL (31-36); Mean Corpuscular Hemoglobin 26 pg (27-31); Mean Corpuscular Volume 79 fL (80-94); Mean Platelet Volume 7.7 fL (7.4-10.4); Platelet Count 191 10^3/uL (150-450); Red Blood Count 4.37 10^6 /uL (4.18-5.48); Red Cell Distribution Width 15 % (10-15); White Blood Count 7.7 10^3/uL (3.5-10.8)
[2021-03-12 05:22] LABS: Calcium 8.5 mg/dL (8.6-10.3); Potassium 3.8 mmol/L (3.5-5.0)
[2021-03-12] MEDS: Aspirin EC 81 mg TAB.EC (enteric coated) PO SCH (08:58)
[2021-03-12 11:42] VITALS: BP 117/81
== END 2021-03-12 12:45 | disposition home or self-care (01) | DRG 247 ==
LOC: ED 22:46 → SUATTDRO 03-08 05:13 → EDHOLD 03-08 05:13 → MEDTELE 03-08 11:09 → ICU 03-11 14:37
PROVIDERS: ADMIT Internal Medicine; ATTEND Hospitalist